=== PATIENT | male | born 1960 | race Caucasian/White ===

== ENCOUNTER 2018-01-15 09:57 | Inpatient (IN) | payer OTHER ==
[~2018-01-15] VITALS: Ht 188 cm; Wt 118.2 kg
[2018-02-06] VITALS (11 sets, daily range): BP systolic 124–170; BP diastolic 68–120; PULSE 62–81; TEMP 97.5–98.3
[2018-02-06] MEDS ORDERED: PRINIVIL20 MG PO (05:55)
[2018-02-06] MEDS ORDERED: MOBIC15 MG PO (05:56)
[2018-02-06] MEDS ORDERED: VERELAN240 MG PO (05:57)
[2018-02-07 02:08] VITALS: BP 163/99; PULSE 93
[2018-02-07 04:34] VITALS: BP 158/94; PULSE 77; TEMP 98.5
[2018-02-07 06:58] LABS: BASO % 0.2 % (0.0-2.0); EOS % 0.2 % (0-4.0); GRAN # 8.5 (1.4-6.5); GRAN % 82.9 % (42.2-75.2); HEMATOCRIT 38.6 % (42.0-52.0); HEMOGLOBIN 13.3 g/dl (13.5-18.0); LYMPH # 0.7 (1.2-3.4); LYMPH % 7.2 % (20.0-51.0); MEAN CELL VOLUME 89 fl (80.0-100.0); MEAN CORPUSCULAR HEMOGLOBIN 31 pg (27.0-31.0); MEAN CORPUSCULAR HGB CONC 35 g/dl (33.0-37.0); MEAN PLATELET VOLUME 10.5 fl (7.4-10.4); MONO # 0.9 (0.1-0.6); MONO % 8.6 % (1.7-9.3); PLATELET COUNT 213 K/mm3 (130-400); RED BLOOD COUNT 4.33 M/mm3 (4.20-5.60); REDCELL DISTRIBUTION WIDTH-CV 15.2 % (11.5-14.5)
[2018-02-07 07:08] LABS: CALCIUM 8.9 mg/dL (8.4-10.2); CREATININE, serum 0.93 mg/dL (0.66-1.25); POTASSIUM 4.1 mmol/L (3.4-5.0)
[2018-02-07 07:37] VITALS: BP 142/88; PULSE 78; TEMP 98.2
[2018-02-07 11:39] VITALS: BP 126/71; PULSE 78; TEMP 98.2
[2018-02-07 15:26] VITALS: BP 100/57; PULSE 64; TEMP 98.1
[2018-02-07 19:29] VITALS: BP 139/85; PULSE 61; TEMP 98.2
[2018-02-08] VITALS (9 sets, daily range): BP systolic 131–180; BP diastolic 79–104; PULSE 45–70; TEMP 97.9–98.8
[2018-02-09 05:30] VITALS: BP 165/110; PULSE 77; TEMP 98.2
[2018-02-09 06:27] VITALS: BP 161/109
[2018-02-09 08:04] VITALS: BP 178/118; PULSE 81; TEMP 98.2
[2018-02-09 08:46] LABS: CALCIUM 8.8 mg/dL (8.4-10.2); CREATININE, serum 0.74 mg/dL (0.66-1.25); MAGNESIUM 1.7 mg/dL (1.6-2.3)
[2018-02-09 11:56] VITALS: BP 136/80; PULSE 73; TEMP 98.3
[2018-02-09 15:34] VITALS: BP 113/62; PULSE 71; TEMP 98.3
[2018-02-09 19:30] VITALS: BP 124/83; PULSE 71; TEMP 98.7
[2018-02-10 00:31] VITALS: BP 148/83; PULSE 57; TEMP 98.4
[2018-02-10 03:36] VITALS: BP 136/91; PULSE 72; TEMP 98.1
[2018-02-10 07:28] VITALS: BP 118/87; PULSE 77; TEMP 97.6
[2018-02-10 10:55] VITALS: BP 120/87; PULSE 71; TEMP 99
[2018-02-10 15:50] VITALS: BP 109/72; PULSE 64; TEMP 98.3
[2018-02-10 19:37] VITALS: BP 97/65; PULSE 69; TEMP 98
[2018-02-11] VITALS (7 sets, daily range): BP systolic 113–171; BP diastolic 60–105; PULSE 34–75; TEMP 97.4–98.9
[2018-02-11 06:34] LABS: HEMATOCRIT 38.9 % (42.0-52.0); HEMOGLOBIN 13.6 g/dl (13.5-18.0); MEAN CELL VOLUME 89 fl (80.0-100.0); MEAN CORPUSCULAR HEMOGLOBIN 31 pg (27.0-31.0); MEAN CORPUSCULAR HGB CONC 35 g/dl (33.0-37.0); MEAN PLATELET VOLUME 9.9 fl (7.4-10.4); PLATELET COUNT 220 K/mm3 (130-400); RED BLOOD COUNT 4.39 M/mm3 (4.20-5.60); REDCELL DISTRIBUTION WIDTH-CV 14.4 % (11.5-14.5)
[2018-02-11 06:50] LABS: CALCIUM 8.7 mg/dL (8.4-10.2); CREATININE, serum 0.87 mg/dL (0.66-1.25); POTASSIUM 3.3 mmol/L (3.4-5.0)
[2018-02-12 00:15] VITALS: BP 127/99; PULSE 67; TEMP 98.2
[2018-02-12 04:36] VITALS: BP 137/92; PULSE 75; TEMP 98.6
[2018-02-12 07:36] VITALS: BP 119/93; PULSE 72; TEMP 98
== END 2018-02-12 10:33 | disposition home or self-care (01) | DRG 657 ==
LOC: INPTSU 02-06 05:25 → SURG 02-06 05:25
PROVIDERS: Urology
PROC: 8E0W4CZ Robotic Assisted Procedure of Trunk Region, Percutaneous Endoscopic Approach (ICD-10-PCS; 2018-02-06)
PROC: 0TB14ZZ Excision of Left Kidney, Percutaneous Endoscopic Approach (ICD-10-PCS; principal; 2018-02-06 07:30)
DX: C64.2 Malignant neoplasm of left kidney, except renal pelvis (principal); K56.7 Ileus, unspecified; N28.1 Cyst of kidney, acquired; I10 Essential (primary) hypertension; Z87.891 Personal history of nicotine dependence; E87.6 Hypokalemia
CPT/HCPCS: A4314; A9284; C1713; J0690; J1100; J1170; J1885; J1940; J2250; J2405; J2704; J2795; J3010; J7120

== ENCOUNTER → 2018-03-06 | Outpatient (CLI) | payer OTHER ==
[~2018-03-06] MED LIST: MOBIC15 MG PO; PRINIVIL20 MG PO; VERELAN240 MG PO
== END ==
LOC: COL.RAD 13:11
DX: K59.00 Constipation, unspecified (principal); R11.0 Nausea; I72.3 Aneurysm of iliac artery; I71.9 Aortic aneurysm of unspecified site, without rupture; Z85.528 Personal history of other malignant neoplasm of kidney; Z90.5 Acquired absence of kidney
CPT/HCPCS: Q9967

== ENCOUNTER 2018-03-20 06:33 | Observation (INO) | payer OTHER ==
[~2018-03-20] VITALS: Ht 188 cm; Wt 113.3 kg
[2018-03-20] VITALS (24 sets, daily range): BP systolic 115–172; BP diastolic 62–120; PULSE 61–93; TEMP 97.1–98.6
[2018-03-20] MEDS ORDERED: TYLENOL 500MG500 MG PO (07:26)
[2018-03-21] VITALS (7 sets, daily range): BP systolic 116–192; BP diastolic 76–118; PULSE 75–96; TEMP 98.2–98.8
[2018-03-21 15:39] LABS: BASO % 0.3 % (0.0-2.0); EOS % 0.1 % (0-4.0); GRAN # 8.8 (1.4-6.5); GRAN % 84.4 % (42.2-75.2); HEMATOCRIT 46.6 % (42.0-52.0); HEMOGLOBIN 16.2 g/dl (13.5-18.0); LYMPH # 0.9 (1.2-3.4); LYMPH % 8.4 % (20.0-51.0); MEAN CELL VOLUME 90 fl (80.0-100.0); MEAN CORPUSCULAR HEMOGLOBIN 31 pg (27.0-31.0); MEAN CORPUSCULAR HGB CONC 35 g/dl (33.0-37.0); MEAN PLATELET VOLUME 9.4 fl (7.4-10.4); MONO # 0.7 (0.1-0.6); MONO % 6.5 % (1.7-9.3); PLATELET COUNT 208 K/mm3 (130-400); RED BLOOD COUNT 5.19 M/mm3 (4.20-5.60); REDCELL DISTRIBUTION WIDTH-CV 14.1 % (11.5-14.5)
[2018-03-21 15:50] LABS: CALCIUM 9.3 mg/dL (8.4-10.2); CREATININE, serum 0.76 mg/dL (0.66-1.25); POTASSIUM 3.9 mmol/L (3.4-5.0)
[2018-03-21 17:43] LABS: COLLECTION METHOD CLEAN CATCH; MUCOUS Present /lpf; PH 5 (5-8); SQUAMOUS EPITHELIAL None Seen /hpf; URINE APPEARANCE Clear; URINE BACTERIA None Seen /hpf; URINE BILIRUBIN Negative (NEGATIVE); URINE BLOOD 3+ (NEGATIVE); URINE COLOR Yellow; URINE GLUCOSE Negative (NEGATIVE); URINE KETONE Negative (NEGATIVE); URINE LEUKOCYTE ESTERASE 2+ (NEGATIVE); URINE NITRATE Negative (NEGATIVE); URINE PROTEIN(semi-quant) 1+ (NEGATIVE); URINE RBC >50 /hpf; URINE UROBILINOGEN Negative (NEGATIVE)
[2018-03-22 03:18] VITALS: BP 166/96; PULSE 68; TEMP 98.2
[2018-03-22 08:13] VITALS: BP 155/110; PULSE 88; TEMP 98.5
[2018-03-22 12:15] VITALS: BP 111/65; PULSE 84; TEMP 97.3
== END 2018-03-22 15:00 | disposition home or self-care (01) ==
LOC: SDCO 06:33 → EDSTATUS 08:00 → COL.RAD 08:00 → INPTSU 10:24 → SURG 13:00
PROVIDERS: Hospitalist
DX: R39.0 Extravasation of urine (principal); I48.91 Unspecified atrial fibrillation; I10 Essential (primary) hypertension; G47.33 Obstructive sleep apnea (adult) (pediatric); Z90.5 Acquired absence of kidney; Z87.891 Personal history of nicotine dependence; Z85.520 Personal history of malignant carcinoid tumor of kidney; Z82.49 Family history of ischemic heart disease and other diseases of the circulatory system
CPT/HCPCS: 99223; 99233-AI; C1769; C2617; G0378; J0360; J0690; J1100; J1170; J1885; J2250; J2270; J2405; J2704; J3010; J7120; Q9967

== ENCOUNTER 2018-04-08 13:20 | Inpatient (IN) | payer OTHER ==
[~2018-04-08] VITALS: Ht 188 cm; Wt 112.4 kg
[~2018-04-08 13:20] MED LIST changes: +TYLENOL 500MG500 MG PO
[2018-04-08 13:32] VITALS: BP 109/64; PULSE 77; TEMP 98.1
[2018-04-08] MEDS ORDERED: FLOMAX 0.40.4 MG/CAP PO (14:01)
[2018-04-08 15:03] VITALS: BP 111/63; PULSE 81; TEMP 98.4
[2018-04-08 20:20] VITALS: BP 150/96; PULSE 89; TEMP 98.9
[2018-04-09] VITALS (13 sets, daily range): BP systolic 94–188; BP diastolic 51–103; PULSE 70–96; TEMP 98.6–101.6
[2018-04-09 15:13] LABS: HEMOGLOBIN 12.7 g/dl (13.5-18.0); MEAN CELL VOLUME 87 fl (80.0-100.0); MEAN CORPUSCULAR HEMOGLOBIN 30 pg (27.0-31.0); MEAN CORPUSCULAR HGB CONC 35 g/dl (33.0-37.0); MEAN PLATELET VOLUME 9.1 fl (7.4-10.4); PLATELET COUNT 221 K/mm3 (130-400); RED BLOOD COUNT 4.21 M/mm3 (4.20-5.60)
[2018-04-09 15:16] LABS: HEMATOCRIT 36.8 % (42.0-52.0)
[2018-04-09 15:23] LABS: CALCIUM 7.7 mg/dL (8.4-10.2); CREATININE, serum 0.98 mg/dL (0.66-1.25); POTASSIUM 4.1 mmol/L (3.4-5.0)
[2018-04-10] VITALS (8 sets, daily range): BP systolic 97–156; BP diastolic 64–88; PULSE 61–80; TEMP 98–102.2
[2018-04-10 08:22] LABS: CALCIUM 7.8 mg/dL (8.4-10.2); CREATININE, serum 0.98 mg/dL (0.66-1.25); HEMOGLOBIN 12.6 g/dl (13.5-18.0); MEAN CELL VOLUME 89 fl (80.0-100.0); MEAN CORPUSCULAR HEMOGLOBIN 31 pg (27.0-31.0); MEAN CORPUSCULAR HGB CONC 35 g/dl (33.0-37.0); MEAN PLATELET VOLUME 9.7 fl (7.4-10.4); PLATELET COUNT 235 K/mm3 (130-400); POTASSIUM 3.9 mmol/L (3.4-5.0); RED BLOOD COUNT 4.12 M/mm3 (4.20-5.60); REDCELL DISTRIBUTION WIDTH-CV 12.8 % (11.5-14.5)
[2018-04-10 08:24] LABS: HEMATOCRIT 36.5 % (42.0-52.0)
[2018-04-10 08:48] LABS: BAND 17 % (0-10); EOSINOPHIL 1 % (0-4); LYMPHOCYTE 10 % (20.0-51.0); NEUTROPHILS 61 % (42.0-75.2); PLATELET ESTIMATE NORMAL (NORMAL)
[2018-04-11] VITALS (7 sets, daily range): BP systolic 113–164; BP diastolic 74–96; PULSE 54–83; TEMP 97.8–101.9
[2018-04-12] VITALS (7 sets, daily range): BP systolic 143–179; BP diastolic 77–101; PULSE 60–78; TEMP 97.6–98.4
[2018-04-13 00:12] VITALS: BP 167/96; PULSE 76; TEMP 98.5
[2018-04-13 08:54] VITALS: BP 153/113; PULSE 72; TEMP 98.2
[2018-04-13 12:03] VITALS: BP 156/82; PULSE 52; TEMP 98.2
[2018-04-13 16:25] VITALS: BP 172/111; PULSE 68; TEMP 98.5
[2018-04-13 19:18] VITALS: BP 184/103; PULSE 84; TEMP 100.3
[2018-04-13 20:53] VITALS: TEMP 98.9
[2018-04-14] VITALS (7 sets, daily range): BP systolic 90–168; BP diastolic 64–102; PULSE 65–80; TEMP 96.5–98.9
[2018-04-14 07:08] LABS: CALCIUM 8.5 mg/dL (8.4-10.2); CREATININE, serum 0.69 mg/dL (0.66-1.25); POTASSIUM 3.3 mmol/L (3.4-5.0)
[2018-04-15 00:06] VITALS: BP 124/84; PULSE 64; TEMP 98
[2018-04-15 04:02] VITALS: BP 130/67; PULSE 66; TEMP 98.2
[2018-04-15 07:27] VITALS: BP 136/93; PULSE 79; TEMP 98.7
[2018-04-15 11:11] VITALS: BP 91/58; PULSE 79; TEMP 98.8
[2018-04-15 12:17] VITALS: BP 105/68; PULSE 72
== END 2018-04-15 13:50 | disposition home or self-care (01) | DRG 690 ==
LOC: MEDICAL 13:20
PROVIDERS: Urology
DX: N13.6 Pyonephrosis (principal); C65.2 Malignant neoplasm of left renal pelvis; E87.1 Hypo-osmolality and hyponatremia; I10 Essential (primary) hypertension; Z87.891 Personal history of nicotine dependence; I48.91 Unspecified atrial fibrillation; B96.5 Pseudomonas (aeruginosa) (mallei) (pseudomallei) as the cause of diseases classified elsewhere
CPT/HCPCS: J0360; J1650; J1885; J1956; J2270; J2543; J7030